=== PATIENT | male | born 1980 | race Caucasian/White ===

== ENCOUNTER → 2020-12-18 | Outpatient (CLI) | payer OTHER ==
[~2020-12-18] MED LIST: BUSPAR 5MG TABLE5 MG PO
== END ==
LOC: EXRD 09:05
DX: M54.9 Dorsalgia, unspecified (principal); L40.50 Arthropathic psoriasis, unspecified; M53.3 Sacrococcygeal disorders, not elsewhere classified; M48.08 Spinal stenosis, sacral and sacrococcygeal region
CPT/HCPCS: 72100; 72202

== ENCOUNTER → 2021-01-23 | Outpatient (CLI) | payer OTHER | LOC: KOH-I 08:51 | DX: M54.9 Dorsalgia, unspecified (principal); M51.37 Other intervertebral disc degeneration, lumbosacral region; M48.07 Spinal stenosis, lumbosacral region | CPT/HCPCS: 72148 ==